=== PATIENT | female | born 1990 | race Caucasian/White ===

== ENCOUNTER 2018-01-12 10:46 | Emergency (ER) | payer OTHER ==
[~2018-01-12] VITALS: Ht 175.3 cm; Wt 169.5 kg
[~2018-01-12 10:46] MED LIST: ADDERALL5 MG PO; AMOX TR-K CLV1 EAC3 PO; Benadryl PO; ENDOCET 5-3251 EACH PO; EXPECTA PRENAT1 EACH PO; IBUPROFEN800 MG PO; JUNEL1 EACH PO; KEFLEX500 MG PO; KLONOPIN0.5 M1 PO; NOHOMEMEDS; PERCOCET 5/31 TABLET PO; VENTOLIN HFA18 GM IH; Vicodin,Norco 5/325 PO; WELLBUTRIN XL150 MG PO; ZANTAC75 M1 PO
[2018-01-12] MEDS ORDERED: LIDODERM 5% P1 PATCH TD (12:47)
[2018-01-12] MEDS ORDERED: FLEXERIL10 MG PO (12:47)
[2018-01-12] MEDS ORDERED: PREDNISONE20 MG PO (12:47)
[2018-01-12] MEDS ORDERED: MOTRIN800 MG PO (12:47)
[2018-01-12 12:54] VITALS: BP 147/108
== END 2018-01-12 12:55 | disposition home or self-care (01) ==
LOC: EME 10:46
DX: M54.41 Lumbago with sciatica, right side (principal); G89.29 Other chronic pain; F17.200 Nicotine dependence, unspecified, uncomplicated
CPT/HCPCS: 72100; 99281; 99284; J1885; J2060; J7512